=== PATIENT | female | born 1940 | race Caucasian/White ===

== ENCOUNTER 2021-10-13 17:03 | Emergency (ER) | payer MEDICARE ==
[~2021-10-13] VITALS: Ht 160 cm; Wt 83.6 kg
[2021-10-13 17:18] VITALS: BP 139/78
[2021-10-13 17:30] VITALS: BP 131/66
[2021-10-13 18:42] LABS: URINE BILIRUBIN - DIPSTICK NEGATIVE (NEGATIVE); URINE BLOOD DIPSTICK NEGATIVE (NEGATIVE); URINE COLOR YELLOW; URINE GLUCOSE - DIPSTICK NEGATIVE (NEGATIVE); URINE KETONE NEGATIVE (NEGATIVE); URINE LEUK ESTERASE NEGATIVE (NEGATIVE); URINE PROTEIN - DIPSTICK NEGATIVE (NEG-TRACE); URINE SPECIFIC GRAVITY 1.025; URINE UROBILINOGEN - DIPSTICK 0.2 E.U./dL (0.2)
[2021-10-13 18:44] LABS: URINE NITRITE - DIPSTICK NEGATIVE (Negative)
[2021-10-13 19:14] VITALS: BP 131/66
[2021-10-13] MEDS ORDERED: OMNICEF300 MG PO (19:18)
== END 2021-10-13 19:25 | disposition still patient (30) ==
LOC: ED 17:03
PROVIDERS: Family Medicine
DX: L03.115 Cellulitis of right lower limb (principal); R60.9 Edema, unspecified; J44.9 Chronic obstructive pulmonary disease, unspecified; R30.0 Dysuria; I10 Essential (primary) hypertension; E78.5 Hyperlipidemia, unspecified

== ENCOUNTER 2021-10-20 10:58 | Emergency (ER) | payer MEDICARE ==
[~2021-10-20] VITALS: Ht 160 cm; Wt 83.6 kg
[~2021-10-20 10:58] MED LIST: OMNICEF300 MG PO
[2021-10-20 11:27] VITALS: BP 117/77
[2021-10-20 11:31] VITALS: BP 144/61
[2021-10-20 11:46] VITALS: BP 161/132
[2021-10-20 11:48] VITALS: BP 102/46
[2021-10-20 12:09] VITALS: BP 102/46
== END 2021-10-20 12:12 | disposition home or self-care (01) ==
LOC: ED 10:58
DX: S51.811A Laceration without foreign body of right forearm, initial encounter (principal); W06.XXXA Fall from bed, initial encounter; S60.211A Contusion of right wrist, initial encounter; W22.09XA Striking against other stationary object, initial encounter; R60.9 Edema, unspecified; I10 Essential (primary) hypertension; F32.A Depression, unspecified; M10.9 Gout, unspecified; J44.9 Chronic obstructive pulmonary disease, unspecified; Z91.81 History of falling

== ENCOUNTER 2022-02-07 14:01 | Inpatient (IN) | payer MEDICARE ==
[2022-02-07] VITALS (11 sets, daily range): BP systolic 123–157; BP diastolic 50–85
[~2022-02-07] VITALS: Ht 160 cm; Wt 91.0 kg
--- NOTE | 2022-02-07 14:03 | NUR ---
PT TO ROOM VIA WC
[2022-02-07 15:30] LABS: HEMATOCRIT 38.2 % (37.0-47.0); HEMOGLOBIN 12.7 g/dl (12.0-16.0); IMMATURE GRANULOCYTES 0.6 % (0.0-5.0); MEAN CELL VOLUME 96.2 fL CALC (80.0-100.0); MEAN CORPUSCULAR HGB CONC 33.2 g/dL CAL (32.0-36.0); NEUT# 5.57 thou/uL (2.00-7.15); RED BLOOD COUNT 3.97 mill/uL (4.20-5.60); RED CELL DISTRI WIDTH 13.5 % (11.5-15.5)
[2022-02-07 15:44] LABS: ALBUMIN 3.6 g/dL (3.2-5.0); ALKALINE PHOSPHATASE 72 u/l (38-126); ANION GAP 15 (6-22 (CALC)); BILIRUBIN, TOTAL 0.4 mg/dL (0.0-1.4); BUN 14 mg/dL (8-23); BUN/CREATININE RATIO 14 (12-20 (CALC)); CARBON DIOXIDE 22 mmol/l (22-30); CHLORIDE 103 mmol/l (95-108); GFR FOR AFR.AMER. > 60 ML/MIN (>=60 (CALC)); GFR OTHER RACES 53 ML/MIN (>=60 (CALC)); POTASSIUM 4.1 mmol/l (3.5-5.1); SGOT/AST 24 u/l (9-36); SODIUM 136 mmol/l (137-146)
[2022-02-07] MEDS ORDERED: PROVENTIL0.083 % IN (17:48)
[2022-02-07] MEDS ORDERED: ASPIRIN81 MG PO (17:49)
[2022-02-07] MEDS ORDERED: ALLOPURINOL100 MG PO (17:49)
[2022-02-07] MEDS ORDERED: ATENOLOL50 MG PO ×2 (17:50→17:52)
[2022-02-07] MEDS ORDERED: CALCITRIOL0.25 MC1 PO (17:52)
[2022-02-07] MEDS ORDERED: D350 MCG PO (18:05)
[2022-02-07] MEDS ORDERED: FERROUS SULF325 M3 PO (18:06)
[2022-02-07] MEDS ORDERED: FLUOXETINE20 MG PO (18:07)
[2022-02-07] MEDS ORDERED: HYDROXYCHLOR200 M1 PO (18:07)
[2022-02-07] MEDS ORDERED: ROSUVASTATIN CA20 MG PO (18:08)
[2022-02-07] MEDS ORDERED: OMEGA-3 FISH1000 MG PO (18:08)
[2022-02-07] MEDS ORDERED: LOSARTAN POTASS25 MG PO (18:08)
[2022-02-07] MEDS ORDERED: WIXELA INHUB 501 AER (18:09)
[2022-02-07] MEDS ORDERED: SPIRIVA RE2.5 MCG/AC (18:09)
[2022-02-08 05:07] VITALS: BP 134/67
--- NOTE | 2022-02-08 05:41 | NUR ---
PATIENT RESTING. NO NEW ISSUES. PERSONAL BELONGING WITHIN REACH, CALL LIGHT WITHIN REACH, AND BED AT THE LOWEST POSITION. PATIENT REMAINS ON NC 2L O2 IN NO DISTRESS. WILL CONTINUE TO MONITOR.
[2022-02-08 06:17] LABS: HEMATOCRIT 35.8 % (37.0-47.0); HEMOGLOBIN 11.7 g/dl (12.0-16.0); IMMATURE GRANULOCYTES 0.5 % (0.0-5.0); MEAN CORPUSCULAR HGB 31.7 pG CALC (26.0-32.0); MEAN CORPUSCULAR HGB CONC 32.7 g/dL CAL (32.0-36.0); NEUT# 3.3 thou/uL (2.00-7.15); RED BLOOD COUNT 3.69 mill/uL (4.20-5.60); RED CELL DISTRI WIDTH 13.3 % (11.5-15.5)
[2022-02-08 06:37] VITALS: BP 140/63
[2022-02-08 06:52] LABS: ALBUMIN 3.4 g/dL (3.2-5.0); BILIRUBIN, TOTAL 0.3 mg/dL (0.0-1.4); C-REACTIVE PROTEIN 3.1 mg/dL (0-0.9); CREATININE 1.1 mg/dL (0.5-1.0); POTASSIUM 4.2 mmol/l (3.5-5.1); TOTAL PROTEIN 5.8 g/dL (6.3-8.2)
--- NOTE | 2022-02-08 07:15 | NUR ---
PT RESTING IN BED, EASILY ARROUSIBLE. EYES PERRL. SPEECH CLEAR AND APPROPRIATE TO CONVERSATION. ALERT AND ORIENTATED X3. BREATHING NON LABORED, ON O2 2LITERS VIA NASAL CANNULA. LUNG SOUDS DIMINISHED. HEART SOUNDS NORMAL. UPPER EXTREMITY STRONG STRENGTH, NO DRIFT NOTED AND BRISK CAP REFIL. ABDOMEN NON DISTENDED, NON TENDER WITH A BRUISE ON RIGHT LOWER QUADRANT. PT STATES ITS FROM WHEN BEING HOME. ACTIVE BOWEL SOUNDS X4. NO REPORTED DIFFICULTY URINATING. LOWER EXTREMINTIES HAVE NO DRIFT, STRONG, SLIGHT EDEMA AROUND ANKLE. PT DENIES PAIN OR FURTHER NEEDS AT THIS TIME. CALL LIGHT IN REACH. ALL SAFETY AND ISOLATION PRECAUTIONS IN PLACE AT THIS TIME.
[2022-02-08 10:53] VITALS: BP 122/55
--- NOTE | 2022-02-08 12:10 | NUR ---
PT REMOVED IV. CATHETER INTACT UPON INSPECTION. SITE CLEANED AND WRAPPED. PT IS EATING LUNCH. DENIES PAIN OR DISCOMFORT. BREATHING REMAINS EVEN AND NON LABORED. PT DENIES ANY FURTHER NEEDS AT THIS TIME. ALL SAFETY PRECAUTIONS IN PLACE AT THIS TIME.
--- NOTE | 2022-02-08 16:00 | NUR ---
PT RESTING IN ROOM. A/O X3. IV SITE PATENT. PT BREATHING EVEN AND NONLABORED. DENIES PAIN. PT DENIES ANY OTHER NEEDS AT THIS TIME. CALL LIGHT IN REACH. ALL SAFETY PRECAUTIONS IN PLACE AT THIS TIME.
[2022-02-08 19:47] VITALS: BP 119/44
[2022-02-09] VITALS (10 sets, daily range): BP systolic 106–139; BP diastolic 57–74
[2022-02-09 06:19] LABS: HEMATOCRIT 35.2 % (37.0-47.0); HEMOGLOBIN 11.7 g/dl (12.0-16.0); MEAN CELL VOLUME 96.4 fL CALC (80.0-100.0); MEAN CORPUSCULAR HGB 32.1 pG CALC (26.0-32.0); MEAN CORPUSCULAR HGB CONC 33.2 g/dL CAL (32.0-36.0); RED BLOOD COUNT 3.65 mill/uL (4.20-5.60); RED CELL DISTRI WIDTH 13.2 % (11.5-15.5)
[2022-02-09 06:30] LABS: ALBUMIN 3.2 g/dL (3.2-5.0); BILIRUBIN, TOTAL 0.2 mg/dL (0.0-1.4); CREATININE 1.1 mg/dL (0.5-1.0); TOTAL PROTEIN 5.3 g/dL (6.3-8.2)
--- NOTE | 2022-02-09 07:45 | NUR ---
PT IN BED WATCHING TV. A/O X4. SPEECH IS CLEAR. BREATHING IS EVEN AND UNLABORED. PT DENIES PAIN. UPPER EXTREMITIES STRONG, NO DRIFT. IV SITE PATENT. ABDOMEN NONDISTENDED, NON TENDER WITH ACTIVE BOWEL SOUNDS X4. NO COMPLAINTS OF URINATING. PT ABLE TO AMBULATE BUT ENCOURAGED TO CALL FOR ASSISTANCE. LOWER EXTREMITIES STRONG, NO DRIFT NOTED. BRUISING ON LOWER LEFT EXTREMITIY. PT DENIES ANY NEEDS AT THIS TIME. ALL SAFETY PRECAUTIONS IN PLACE AT THIS TIME.
--- NOTE | 2022-02-09 12:00 | NUR ---
PT SITTING IN BED. BREATHING REMAINS EVEN AND UNLABORED. PT DENIES PAIN AT THIS TIME. ALERT X3 WITH CLEAR SPEECH. O2 IN PLACE. TELE IN PLACE. IV SITE PATENT. PT DENIES NEEDS AT THIS TIME. ALL SAFETY PRECAUTIONS IN PLACE AT THIS TIME.
--- NOTE | 2022-02-09 14:30 | NUR ---
PT CALLED AND STATED THAT THEIR IV SITE HAD BEEN HIT/PULLED AND BLEW. LEFT HAND IS SWOLLEN. CATHETER INTACT UPON REMOVAL. DRESSED WITH GAUZE AND COBAND. PT DENIES PAIN AT THIS TIME. CALL LIGHT IN REACH. ALL SAFETY AND ISOLATION PRECAUTIONS IN PLACE AT THIS TIME.
--- NOTE | 2022-02-09 16:00 | NUR ---
PT A/O X3. NO REPORTED PAIN. BREATHING REMAINS THE SAME. IV SITE PATENT. TELE IN PLACE. PT DENIES ANY OTHER NEEDS AT THIS TIME.
[2022-02-10 03:31] LABS: URINE BILIRUBIN - DIPSTICK NEGATIVE (NEGATIVE); URINE BLOOD DIPSTICK NEGATIVE (NEGATIVE); URINE COLOR YELLOW; URINE GLUCOSE - DIPSTICK NEGATIVE (NEGATIVE); URINE KETONE NEGATIVE (NEGATIVE); URINE LEUK ESTERASE NEGATIVE (NEGATIVE); URINE PH 5.5 (4.5-8.0); URINE PROTEIN - DIPSTICK NEGATIVE (NEG-TRACE); URINE UROBILINOGEN - DIPSTICK 0.2 E.U./dL (0.2)
[2022-02-10 04:00] VITALS: BP 116/61
[2022-02-10 04:03] LABS: URINE NITRITE - DIPSTICK NEGATIVE (Negative)
[2022-02-10 04:05] VITALS: BP 116/61
[2022-02-10 05:53] LABS: HEMATOCRIT 33.7 % (37.0-47.0); HEMOGLOBIN 11.1 g/dl (12.0-16.0); IMMATURE GRANULOCYTES 0.5 % (0.0-5.0); MEAN CELL VOLUME 96.8 fL CALC (80.0-100.0); MEAN CORPUSCULAR HGB 31.9 pG CALC (26.0-32.0); MEAN CORPUSCULAR HGB CONC 32.9 g/dL CAL (32.0-36.0); NEUT# 3.19 thou/uL (2.00-7.15); RED BLOOD COUNT 3.48 mill/uL (4.20-5.60); RED CELL DISTRI WIDTH 13.2 % (11.5-15.5)
[2022-02-10 06:29] LABS: ALBUMIN 3.2 g/dL (3.2-5.0); ALKALINE PHOSPHATASE 60 u/l (38-126); BILIRUBIN, TOTAL 0.2 mg/dL (0.0-1.4); BUN 25 mg/dL (8-23); BUN/CREATININE RATIO 26 (12-20 (CALC)); C-REACTIVE PROTEIN 1.3 mg/dL (0-0.9); CARBON DIOXIDE 24 mmol/l (22-30); GFR FOR AFR.AMER. > 60 ML/MIN (>=60 (CALC)); GFR OTHER RACES 53 ML/MIN (>=60 (CALC)); POTASSIUM 4.2 mmol/l (3.5-5.1); SGOT/AST 26 u/l (9-36); SODIUM 134 mmol/l (137-146); TOTAL PROTEIN 5.3 g/dL (6.3-8.2)
[2022-02-10 06:30] LABS: ANION GAP 11 (6-22 (CALC)); CHLORIDE 103 mmol/l (95-108)
--- NOTE | 2022-02-10 08:00 | NUR ---
PT RESTING IN SEMI FOWLERS POSITION. PT A/O X3. RESPIRATIONS EVEN AND UNLABORED ON 2L NC, O2 98%. O2 REMOVED AT THIS TIME IN ATTEMPT TO WEAN OFF. LUNG SOUNDS CLEAR. HEART RHYTHM NORMAL WITH TELE IN PLACE. BOWEL SOUNDS ACTIVE. #22G RH FLUSHED.SIGNIFICANT SWEELING TO LEFT HAND FROM IV INFILTARTION, HEAT PACK APPLIED. TYLENOL ADMNISTERED FOR GENERALIZED PAIN. PT DENIES OF ANY ADDITIONAL NEEDS AT THIS TIME. ALL SAFTEY PRECAUTIONS ARE IN PLACE WITH CALL LIGHT IN REACH. AIR/CONTACT PRECAUTIONS.
[2022-02-10 08:16] VITALS: BP 135/73
--- NOTE | 2022-02-10 08:22 | NUR ---
PT RESTING IN SEMI FOWLERS POSITION. O2 87% ON ROOM AIR.2L NC REAPPLIED, O2 INCREASED TO MID 90'S. RESPIRATIONS REMAINS EVEN AND UNLABORED. PT DENIES OF ANY NEEDS. ALL SAFTEY PRECAUTIONS ARE IN PLACE WITH CALL LIGHT IN REACH
[2022-02-10 11:58] VITALS: BP 114/62
--- NOTE | 2022-02-10 12:10 | NUR ---
PT SITTING UP IN RECYLINER. RESPIRATIONS EVEN AND UNLABORED ON 2L NC. RESPIRATIONS EVEN AND UNLABORED. TELE MONITORING IN PLACE. IV PATENT. PT DENIES OF ANY ADDITIONAL NEEDS. ALL SAFTEY PRECAUTIONS ARE IN PLACE WITH CALL LIGHT IN REACH
--- NOTE | 2022-02-10 15:28 | NUR ---
PT SITTING UP IN RECYLINER WATCHING TV. IV ABX INFUSING. TELE MONITORING IN PLACE. REPSIRATIONS EVEN AND UNLABORED ON 2L NC. PT DENIES OF ANY NEEDS. ALL SAFTEY PRECAUTIONS ARE IN PLACE WITH CALL LIGHT IN REACH
[2022-02-10 16:26] VITALS: BP 127/70
[2022-02-11 00:04] VITALS: BP 142/63
[2022-02-11 04:24] VITALS: BP 156/86
[2022-02-11 05:26] LABS: HEMATOCRIT 33.2 % (37.0-47.0); IMMATURE GRANULOCYTES 0.8 % (0.0-5.0); MEAN CORPUSCULAR HGB 31.8 pG CALC (26.0-32.0); MEAN CORPUSCULAR HGB CONC 33.1 g/dL CAL (32.0-36.0); NEUT# 2.9 thou/uL (2.00-7.15); RED BLOOD COUNT 3.46 mill/uL (4.20-5.60); RED CELL DISTRI WIDTH 13.1 % (11.5-15.5)
[2022-02-11 06:11] LABS: ANION GAP 11 (6-22 (CALC)); BUN 23 mg/dL (8-23); BUN/CREATININE RATIO 26 (12-20 (CALC)); CARBON DIOXIDE 24 mmol/l (22-30); CHLORIDE 104 mmol/l (95-108); CREATININE 0.9 mg/dL (0.5-1.0); GFR FOR AFR.AMER. > 60 ML/MIN (>=60 (CALC)); GFR OTHER RACES 60 ML/MIN (>=60 (CALC)); SODIUM 135 mmol/l (137-146)
[2022-02-11 07:32] VITALS: BP 113/66
--- NOTE | 2022-02-11 08:00 | NUR ---
patient is a/ox4, able to make needs known to staff denies pain at this time. 3mm perrla, sitting on side of the bed waiting for breakfast. c/o sob, meds given. clear to diminished lung sounds. 2lnc. active bowel sounds.soft non tender abdomen. left hand has some edema 1+ pitting, due to previous iv patient stated, bruised left hand/wrist due to the previous iv as well. strong pulses. 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 scattered small bruises throughout body. vitals are stable. safety measures in place. call light in reach. will continue to monitor per hospital's policy.
--- NOTE | 2022-02-11 12:00 | NUR ---
GAVE PATIENT AN I.S, INFORMED HER ON HOW TO USE IT, AND HOW OFTEN AND THE PURPOSE OF AN I.S. SHE STATED SHE UNDERSTOOOD, TRIED IT AND PUT IT DOWN, TOLD HER SHE CAN CONTINUE IT AFTER SHE FINISHES HER LUNCH.
--- NOTE | 2022-02-11 14:00 | NUR ---
patient wanted to get back in bed for a nap, stayed in chair since this morning. she has been working on her i.s, she is now reaching up to 1000 on it.
--- NOTE | 2022-02-11 16:00 | NUR ---
PATIENT IS CURRENTLY IN THE BATHROOM, STATED "THIS MEDICATION REALLY HAS ME PEEING A WHOLE LOT". SPEAKING OF THE LASIX, EDUCATION WAS PROVIDED. SHE STATED SHE UNDERSTOOD.
[2022-02-11 19:51] VITALS: BP 143/69
[2022-02-12] VITALS (7 sets, daily range): BP systolic 115–146; BP diastolic 69–84
[2022-02-12 05:05] LABS: HEMATOCRIT 34.1 % (37.0-47.0); HEMOGLOBIN 11.4 g/dl (12.0-16.0); IMMATURE GRANULOCYTES 1.4 % (0.0-5.0); MEAN CELL VOLUME 95.5 fL CALC (80.0-100.0); MEAN CORPUSCULAR HGB 31.9 pG CALC (26.0-32.0); MEAN CORPUSCULAR HGB CONC 33.4 g/dL CAL (32.0-36.0); NEUT# 2.53 thou/uL (2.00-7.15); RED BLOOD COUNT 3.57 mill/uL (4.20-5.60); RED CELL DISTRI WIDTH 13.2 % (11.5-15.5)
[2022-02-12 05:38] LABS: ALBUMIN 3.2 g/dL (3.2-5.0); ALKALINE PHOSPHATASE 56 u/l (38-126); ANION GAP 10 (6-22 (CALC)); BUN 23 mg/dL (8-23); BUN/CREATININE RATIO 27 (12-20 (CALC)); CARBON DIOXIDE 28 mmol/l (22-30); CHLORIDE 100 mmol/l (95-108); CREATININE 0.9 mg/dL (0.5-1.0); GFR FOR AFR.AMER. > 60 ML/MIN (>=60 (CALC)); GFR OTHER RACES 60 ML/MIN (>=60 (CALC)); MAGNESIUM 1.9 mg/dL (1.6-2.3); SGOT/AST 34 u/l (9-36); SODIUM 135 mmol/l (137-146); TOTAL PROTEIN 5.5 g/dL (6.3-8.2)
[2022-02-12 05:39] LABS: BILIRUBIN, TOTAL 0.3 mg/dL (0.0-1.4)
--- NOTE | 2022-02-12 07:40 | NUR ---
PT RESTING IN LOW FOWLERS POSITION. A/OX3 ASSESSMENT AND VS COMPLETED. HEART RHYTHM ON TELE . RESPIRATIONS UNLABORED. BOWEL SOUNDS ACTIVE IV SITE TO RIGHT ARM FLUSHED 22 G RW S.L PT DENIES ADDITIONAL NEEDS AT THE TIME . PT STATES DID NOT SLEEP WELL LAST NIGHT WOULD LIKE TO REST. STATED UNDERSTANDING ALL SAFETY PRECAUTIONS IN PLACE WITH CALL LGIHT IN REACH.
--- NOTE | 2022-02-12 12:13 | NUR ---
PT RESTING IN HIGH FOWLERS POSITION . DENIES ADDITIONAL NEEDS AT THE TIME
--- NOTE | 2022-02-12 15:49 | NUR ---
PT NILO HOSE STOCKINGS APPLIED PT DENIES ADDITIONAL NEEDS AT THE TIME .
[2022-02-13 00:11] VITALS: BP 147/85
[2022-02-13 04:18] VITALS: BP 135/76
[2022-02-13 06:14] LABS: ALBUMIN 3.5 g/dL (3.2-5.0); ALKALINE PHOSPHATASE 65 u/l (38-126); ANION GAP 7 (6-22 (CALC)); BILIRUBIN, TOTAL 0.4 mg/dL (0.0-1.4); BUN 21 mg/dL (8-23); BUN/CREATININE RATIO 23 (12-20 (CALC)); CARBON DIOXIDE 32 mmol/l (22-30); CHLORIDE 99 mmol/l (95-108); CREATININE 0.9 mg/dL (0.5-1.0); GFR FOR AFR.AMER. > 60 ML/MIN (>=60 (CALC)); GFR OTHER RACES 60 ML/MIN (>=60 (CALC)); MAGNESIUM 2.2 mg/dL (1.6-2.3); POTASSIUM 3.8 mmol/l (3.5-5.1); SGOT/AST 36 u/l (9-36); SODIUM 134 mmol/l (137-146); TOTAL PROTEIN 5.9 g/dL (6.3-8.2)
[2022-02-13 06:35] VITALS: BP 143/76
--- NOTE | 2022-02-13 07:26 | NUR ---
PT RESTING IN HIGH FOWLERS POSITION. A/OX3 ASSESSMENT AND VS COMPLETED. RESPIRATIONS UNLABORED. WHEEZING TO RIGHT SIDE. HEART RHYTHM ON TELE . BOWEL SOUNDS ACTIVE. IV SITE TO RIGHTHAND NOTED . PT DENIES ADDITIONAL NEEDS AT THE TIME ALL SAFETY PRECAUTIONS IN PLACE CALL LIGHT IN REACH.
[2022-02-13 10:58] VITALS: BP 130/65
[2022-02-13] MEDS ORDERED: DEXAMETHASON6 MG PO (11:57)
--- NOTE | 2022-02-13 12:18 | NUR ---
PT TO BE DC ALL SAFETY PRECAUTIONS IN PLACE.
--- NOTE | 2022-02-13 15:19 | NUR ---
PT AWAITING DC TO HOME. PT OXYGEN HAS NOT YET ARRIVED. NO KNOWN TIME . HOLD ON DC .
[2022-02-13 16:17] VITALS: BP 141/83
--- NOTE | 2022-02-13 18:28 | NUR ---
PT RESTING IN RECLINER. STATES NO PAIN OR NEEDS AT THIS TIME. FALL/SAFTEY PRECAUTION IN PLACE. CALL LIGHT WITHIN REACH
[2022-02-13 19:04] VITALS: BP 124/64
[2022-02-14 00:09] VITALS: BP 120/71
[2022-02-14 04:31] VITALS: BP 134/71
--- NOTE | 2022-02-14 04:58 | NUR ---
PATIENT WAS UNABLE TO SLEEP MOST OF THE NIGHT. PATIENT DID NOT REPORT ANY NEW SYMPTOMS AND STSATES HER OXYGEN IS HOME AND SHE IS READY FOR DISCHARGE TODAY.
[2022-02-14 06:44] VITALS: BP 137/68
[2022-02-14 07:16] VITALS: BP 137/68
[2022-02-14 09:15] VITALS: BP 125/54
== END 2022-02-14 10:37 | disposition home or self-care (01) | DRG 177 ==
LOC: ED 14:01 → ED-I 16:00 → ED 16:35 → MS2 16:36
PROVIDERS: Family Medicine; Internal Medicine; Nurse Practitioner; ADMIT Internal Medicine; ATTEND Internal Medicine
PROC: XW033E5 Introduction of Remdesivir Anti-infective into Peripheral Vein, Percutaneous Approach, New Technology Group 5 (ICD-10-PCS; principal; 2022-02-10)
DX: U07.1 COVID-19 (principal); J12.82 Pneumonia due to coronavirus disease 2019; J44.0 Chronic obstructive pulmonary disease with (acute) lower respiratory infection; J44.1 Chronic obstructive pulmonary disease with (acute) exacerbation; J96.11 Chronic respiratory failure with hypoxia; I10 Essential (primary) hypertension; I25.10 Atherosclerotic heart disease of native coronary artery without angina pectoris; F41.9 Anxiety disorder, unspecified; F32.A Depression, unspecified; Z91.81 History of falling; Z99.81 Dependence on supplemental oxygen
CPT/HCPCS: G0378; J1650; S0073